=== PATIENT | male | born 1970 | race Caucasian/White ===

== ENCOUNTER → 2022-05-26 | Outpatient (CLI) | payer BC ==
[2022-05-26 14:35] LABS: Basophils # (A) 0.05 X 10*3/uL (0.00-0.10); Eosinophils # (A) 0.24 X 10*3/uL (0.04-0.35); Eosinophils % (A) 4.8 %; HCT 44.8 % (39.6-50.0); HGB 15.1 g/dL (13.0-17.0); Immature Grans, Automated 0.4 %; Lymphocytes # (A) 2.14 X 10*3/uL (0.90-5.00); Lymphocytes % (A) 42.4 %; MCH 32.2 pg (27.0-32.0); MCHC 33.7 g/dL (32.0-37.0); MCV 95.5 fL (80.0-97.0); Mean Platelet Volume 9.2 fL (9.5-12.2); Monocytes # (A) 0.31 X 10*3/uL (0.20-1.00); Monocytes % (A) 6.1 %; NRBC Per 100 WBC 0 /100 WBCS (0.0-0.0); Neutrophils # (A) 2.29 X 10*3/uL (1.80-7.70); Neutrophils % (A) 45.3 %; Platelet Count 248 X 10*3/uL (140-440); RBC 4.69 X 10*6/uL (4.40-5.60); RDW 12.7 % (11.5-14.5); WBC 5.05 X 10*3/uL (4.50-10.00)
[2022-05-26 15:15] LABS: ALT 34 U/L (10-49); AST 26 U/L (14-35); African American GFR (CKD) 92.3 (60.0-200.0); Albumin 4.2 g/dL (3.8-4.9); Albumin/Globulin Ratio 1.98 (1.60-3.17); Alkaline Phosphatase 58 U/L (41-126); BUN/Creat Ratio 13.89 Ratio (12.00-20.00); Calcium 9.1 mg/dL (8.7-10.3); Carbon Dioxide 26.4 mmol/L (20.0-27.5); Chloride 108 mmol/L (96-109); Chol/HDL Ratio 2.42 Ratio; Globulin 2.1 g/dL (1.6-3.3); Glucose 103 mg/dL (70-110); LDL Cholesterol,Calculated 96.7 mg/dL (0.0-131.0); Non-African American GFR(CKD) 79.6 (60.0-200.0); Potassium 5.1 mmol/L (3.5-5.5); Sodium 143 mmol/L (135-145); Total Protein 6.3 g/dL (6.2-8.2)
== END | disposition home or self-care (01) ==
LOC: LABWHC1 09:09
PROVIDERS: ATTEND Family Medicine
DX: Z00.00 Encounter for general adult medical examination without abnormal findings (principal); Z12.5 Encounter for screening for malignant neoplasm of prostate
CPT/HCPCS: 36415; 80053; 80061; 83036; 84153; 84443; 85025